=== PATIENT | female | born 1995 | race Caucasian/White ===

== ENCOUNTER → 2018-02-15 | Outpatient (CLI) | payer OTHER ==
[~2018-02-15] MED LIST: IBUP100T6 PO
--- NOTE | 2018-02-15 15:16 | DIAGNOSTIC IMAGING REPORT ---
RIGHT UPPER ARM NONVASCULAR ULTRASOUND CLINICAL HISTORY: R22.31 palpable mass right upper arm COMPARISON STUDY: No previous studies for comparison. FINDINGS: Ultrasonographic evaluation was performed with attention to the palpable abnormality which is reported to be located within the posterior arm at the elbow level. No discrete masses are visualized ultrasonographically. There is minor heterogeneity in the subcutaneous fat. IMPRESSION: No pathologic masses are visualized ultrasonographically. Clinical follow-up is advocated. Electronically signed by: Lobo Magallanes M.D. 02/15/2018 3:15 PM Dictated Date/Time: 02/15/2018 3:13 PM
== END | disposition home or self-care (01) ==
LOC: C.ULTR 14:41
PROVIDERS: ATTEND Nurse Practitioner Pediatrics
DX: R22.31 Localized swelling, mass and lump, right upper limb (principal)